=== PATIENT | male | born 1955 | race Caucasian/White ===

== ENCOUNTER 2019-05-26 13:54 | Day surgery (SDC) | payer MEDICARE, MEDICAID ==
[2019-05-20 11:52] LABS: BASOPHILS # (AUTO) 0.1 X10'3 (0-0.2); BASOPHILS % (AUTO) 0.8 % (0-1); EOSINOPHILS # (AUTO) 0.3 X10'3 (0-0.9); EOSINOPHILS % (AUTO) 3.1 % (0-6); HEMATOCRIT 37.4 % (42.0-52.0); HEMOGLOBIN 12.4 g/dl (14.0-17.9); LYMPHOCYTES # (AUTO) 1.9 X10'3 (1.1-4.8); LYMPHOCYTES % (AUTO) 22.7 % (21-51); MEAN CORPUSCULAR HEMOGLOBIN 30.2 PG (27.0-31.0); MEAN CORPUSCULAR HGB CONC 33.2 g/dL (33.0-36.5); MEAN CORPUSCULAR VOLUME 90.9 FL (78-98); MEAN PLATELET VOLUME 9.9 FL (7.4-10.4); MONOCYTES # (AUTO) 0.9 X10'3 (0-0.9); MONOCYTES % (AUTO) 10.4 % (2-12); NEUTROPHILS # (AUTO) 5.2 X10'3 (1.8-7.7); PLATELET COUNT 176 X10'3 (140-440); RED BLOOD COUNT 4.11 X10'6 (4.70-6.10); RED CELL DISTRIBUTION WIDTH 14.5 % (11.5-14.5); WHITE BLOOD COUNT 8.2 X10'3 (4.5-11.0)
[2019-05-20 12:01] LABS: ALBUMIN 3.3 G/DL (3.4-5.0); ANION GAP 8 (8-16); BLOOD UREA NITROGEN 21 MG/DL (7-18); BUN/CREATININE RATIO 21.6 (5.4-32.0); CALCIUM 8.5 MG/DL (8.5-10.1); CHLORIDE 105 MMOL/L (99-107); CREATININE 0.97 MG/DL (0.60-1.10); GLUCOSE 192 MG/DL (70-104); POTASSIUM 4.1 MMOL/L (3.5-5.1); SODIUM 139 MMOL/L (135-145); TOTAL CARBON DIOXIDE 26.4 MMOL/L (24-32); eGFR 78 ML/MIN
[2019-05-20 12:02] LABS: PARTIAL THROMBOPLASTIN TIME 27 SECONDS (22-32)
[~2019-05-26] VITALS: Ht 185.4 cm; Wt 93.5 kg
[2019-05-26] VITALS (7 sets, daily range): BP systolic 109–177; BP diastolic 67–97
[~2019-05-26 13:54] MED LIST: ASPI-1071 PO; CANNABIS INH; CLOP75TA35 PO; COR3.125T PO; INSU100C4 SQ; ISOS30TA9 PO; LANTUS SQ; MECL12.5 PO; ONDA4TAB59 PO; SIMV20TA5 PO; VAL2T PO; ZES10T PO
[2019-05-26] MEDS ORDERED: diphenhydrAMINE 25mg capsule PO ONE (14:25)
[2019-05-26] MEDS ORDERED: normal saline 1000ml 1,000 ML IV SCH (14:25)
[2019-05-26] MEDS ORDERED: LORazepam 0.5 MG tablet PO ONE (14:25)
[2019-05-26] MEDS ORDERED: OMEP-271 PO (14:37)
[2019-05-26] MEDS ORDERED: MECL-111 PO (14:37)
[2019-05-26] MEDS ORDERED: INSU100V13 SQ (14:39)
[2019-05-26] MEDS ORDERED: DOCU-148 PO (14:40)
[2019-05-26] MEDS ORDERED: REG10L PO (14:41)
[2019-05-26] MEDS ORDERED: CITA20TA28 PO (14:43)
[2019-05-26] MEDS ORDERED: ALPR-624 PO (14:45)
[2019-05-26] MEDS ORDERED: INSU100I31 SQ (14:47)
[2019-05-26] MEDS ORDERED: SACU1TAB PO (14:49)
[2019-05-26] MEDS ORDERED: ATOR80TA PO (14:49)
[2019-05-26] MEDS ORDERED: NIFE90TA2 PO (14:50)
[2019-05-26] MEDS ORDERED: MESSAGE TO PHARMACY PO ONE (15:40)
[2019-05-26] MEDS ORDERED: dextrose ORAL solution 15 GM/59 ML bottle PO PRN ×2 (15:40)
[2019-05-26] MEDS ORDERED: dextrose 50%-water 50ml dispensing syringe IV PRN ×2 (15:40)
[2019-05-26] MEDS ORDERED: insulin Lispro (HumaLOG) vial - multi-dose SQ SCH (15:40)
[2019-05-26] MEDS ORDERED: glucagon, human recombinant 1mg kit SUBCUT PRN (15:40)
[2019-05-26] MEDS ORDERED: iohexol 350MG/ML 100ml bottle IV ONE (16:00)
[2019-05-26] MEDS ORDERED: midazolam 2 mg/2 ml injection ONE (16:00)
[2019-05-26] MEDS ORDERED: fentaNYL/PF 50MCG/1 ML 2ML syringe ONE (16:00)
[2019-05-26] MEDS ORDERED: LIDOcaine 1% (10mg/ml)w/preservative injection 20ml MDV ONE (16:00)
[2019-05-26] MEDS ORDERED: iohexol 350 MG/ML 50ML vial IV ONE ×3 (17:40→18:03)
[2019-05-26] MEDS ORDERED: ticagrelor 90mg tablet ONE (17:49)
[2019-05-26] MEDS ORDERED: heparin 1,000unit/ml 10ml vial 10 ML ONE (17:49)
[2019-05-26] MEDS ORDERED: insulin glargine (Lantus) pen - multi-dose SQ SCH (21:00)
== END 2019-05-26 20:50 | disposition home or self-care (01) ==
LOC: SSTAY O 13:54
PROVIDERS: ATTEND Internal Medicine Interventional Cardiology
DX: I25.10 Atherosclerotic heart disease of native coronary artery without angina pectoris (principal); E11.51 Type 2 diabetes mellitus with diabetic peripheral angiopathy without gangrene; I50.9 Heart failure, unspecified; I11.0 Hypertensive heart disease with heart failure; E78.5 Hyperlipidemia, unspecified; E11.40 Type 2 diabetes mellitus with diabetic neuropathy, unspecified; Z88.0 Allergy status to penicillin; Z91.041 Radiographic dye allergy status; Z79.899 Other long term (current) drug therapy; Z86.73 Personal history of transient ischemic attack (TIA), and cerebral infarction without residual deficits; Z87.891 Personal history of nicotine dependence
CPT/HCPCS: 36415; 80048; 82948; 85025; 85610; 85730; 93005; 93459; 99152; 99153; C1725; C1769; C1874; C9604; C9605; J1644; J1815; J2001; J2250; J3010; J7030; Q0163; Q9967; 93458; A6258; C1760